=== PATIENT | female | born 1990 | race African-American/Black ===

== ENCOUNTER 2016-12-25 14:37 | Emergency (ER) | payer OTHER ==
[~2016-12-25] VITALS: Ht 160 cm; Wt 122.5 kg
[2016-12-25 14:54] VITALS: Ht 160 cm; Wt 122.5 kg
[2016-12-25 17:14] LABS: ADD UMIC YES; URINE BILIRUBIN (Dip) NEGATIVE (NEGATIVE); URINE BLOOD (Dip) 3+ (NEGATIVE); URINE COLOR LT. YELLOW (YELLOW); URINE GLUCOSE (Dip) NEGATIVE (NEGATIVE); URINE KETONES (Dip) NEGATIVE (NEGATIVE); URINE LEUKOCYTE ESTERASE (Dip) NEGATIVE (NEGATIVE); URINE NITRITE (Dip) NEGATIVE (NEGATIVE); URINE TOTAL PROTEIN (Dip) NEGATIVE (NEGATIVE); URINE UROBILINOGEN (Dip) 0.2 E.U./dL (0.1-1.0)
[2016-12-25 17:15] LABS: ADD SCAN DIFF NO
[2016-12-25 17:35] LABS: SQUAMOUS EPITHELIAL CELL,UR FEW
[2016-12-25 17:49] LABS: BASOPHILS % 0.5 % (0.0-2.0); EOSINOPHILS # 0.1 10^3/ul (0.0-0.5); EOSINOPHILS % 1.6 % (0.0-7.0); HEMOGLOBIN 12.3 g/dl (12.0-16.0); LYMPHOCYTES % 52.2 % (15.0-51.0); MEAN CORPUSCULAR HEMOGLOBIN 29.9 pg (29.0-33.0); MEAN CORPUSCULAR HGB CONC 33.2 g/dl (32.0-37.0); MEAN CORPUSCULAR VOLUME 89.8 fl (82.0-101.0); MEAN PLATELET VOLUME 9.1 fl (7.4-10.4); MONOCYTE # 0.5 10^3/ul (0.3-0.9); MONOCYTES % 7.9 % (0.0-11.0); NEUTROPHIL # 2.2 10^3/ul (1.6-7.5); NEUTROPHILS % 37.6 % (39.0-77.0); PLATELET COUNT 397 10^3/UL (140-415); RED BLOOD COUNT 4.12 10^6/ul (4.20-5.40); RED CELL DISTRIBUTION WIDTH 13.6 % (11.5-14.5); WHITE BLOOD COUNT 5.7 10^3/ul (4.8-10.8)
--- NOTE | 2016-12-25 18:11 | RADRPT ---
PROCEDURE: Obstetrical ultrasound with endovaginal images. CLINICAL INDICATION: Vaginal bleeding TECHNIQUE: Multiple sonographic images of the pelvis were obtained utilizing a transabdominal and endovaginal technique. The images were reviewed on a PACS workstation. COMPARISON: None. LMP: 12/21/2016 FINDINGS: The uterus measures 10.0 x 4.8 x 5.1 cm. The endometrial echo complex measures 16 mm in thickness. There is no evidence of an intrauterine . There is no evidence of focally increased heter ogeneity or vascularity in the endometrium to suggest retained products of conception. The right ovary is not visualized. The left ovary measures 2.8 x 1.5 x 1.8 cm. There is normal vascu lar flow in both ovaries. There is a 1.2 cm thick-walled complex cystic lesion with low level internal echoes and mild periphe ral vascular flow in the left ovary which may be a hemorrhagic or corpus luteal cyst. No significant pelvic free fluid is identified. IMPRESSION: There is thickening of the endometrium to 16 mm without evidence of an intrauterine or ret ained products of conception, as above. Correlation with Beta HCG levels is recommended. 1.2 cm complex cystic lesion in the left ovary may be a hemorrhagic or corpus luteal cyst. Nonvisualization of the right ovary. RPTAT: EE Physician Tory Date Time Electronically viewed and signed by Physician Tory on 12/25/2016 18:11 /
--- NOTE | 2016-12-25 18:21 | ERD ---
ER Documentation Chief Complaint Date/Time DATE: 12/25/16 TIME: 18:17 Chief Complaint VAG BLEED SINCE LAST NIGHT , LMP 11/26/16 HPI This is a 26-year-old female who presents to the emergency department today for vaginal bleeding. Patient states that 4 days ago she was seen at outside hospital in [place] as she had a syncopal episode at work and was taken there to the hospital and was told that she was . Patient states that she has had spotting since then that was worse last night. States she has some nausea but no vomiting. States she took a home test today that was negative for denies any fevers or chills. ROS All systems reviewed and are negative except as per history of present illness. Medications Home Meds Active Scripts Acetaminophen* (Tylophen*) 500 Mg Capsule, 1 CAP PO Q6H Y for PAIN AND OR ELEVATED TEMP, #30 CAP Prov:OLGA TARANGO PA-C 12/25/16 Allergies Allergies: Coded Allergies: No Known Allergy (Unverified , 12/25/16) PMhx/Soc Medical and Surgical Hx: pt denies Medical Hx, pt denies Surgical Hx Hx Alcohol Use: No Hx Substance Use: No Hx Tobacco Use: No Smoking Status: Never smoker Physical Exam Vitals Vital Signs Date Time Temp Pulse Resp B/P Pulse Ox O2 Delivery O2 Flow Rate FiO2 12/25/16 14:54 97.6 82 20 132/81 100 Physical Exam Const: Obese, no acute distress Head: Atraumatic Eyes: Normal Conjunctiva ENT: Normal External Ears, Nose and Mouth. Neck: Full range of motion..~ No meningismus. Resp: Clear to auscultation bilaterally Cardio: Regular rate and rhythm, no murmurs Abd: Soft, non tender, non distended. Normal bowel sounds. No right lower quadrant pain. No left lower quadrant pain. Skin: No petechiae or rashes Neur: Awake and alert Psych: Normal Mood and Affect Result Diagram: 12/25/16 1700 Results 24 hrs Laboratory Tests Test 12/25/16 16:55 12/25/16 17:00 Urine Color LT. YELLOW Urine Clarity CLEAR Urine pH 6.0 Urine Specific Frederic <=1.005 Urine Ketones NEGATIVE Urine Nitrite NEGATIVE Urine Bilirubin NEGATIVE Urine Urobilinogen 0.2 E.U./dL Urine Leukocyte Esterase NEGATIVE Urine Microscopic RBC 5-10/HPF Urine Microscopic WBC 0-2/HPF Urine Squamous Epithelial Cells FEW Urine Hemoglobin 3+ Urine Glucose NEGATIVE% Urine Total Protein NEGATIVE White Blood Count 5.710^3/ul Red Blood Count 4.1210^6/ul Hemoglobin 12.3g/dl Hematocrit 37.0% Mean Corpuscular Volume 89.8fl Mean Corpuscular Hemoglobin 29.9pg Mean Corpuscular Hemoglobin Concent 33.2g/dl Red Cell Distribution Width 13.6% Platelet Count 28613^3/UL Mean Platelet Volume 9.1fl Neutrophils % 37.6% Lymphocytes % 52.2% Monocytes % 7.9% Eosinophils % 1.6% Basophils % 0.5% Nucleated Red Blood Cells % 0.0/100WBC Neutrophils # 2.210^3/ul Lymphocytes # 3.010^3/ul Monocytes # 0.510^3/ul Eosinophils # 0.110^3/ul Basophils # 0.010^3/ul Nucleated Red Blood Cells # 0.010^3/ul Beta HCG, Quantitative < 2.4mIU/ml DIAGNOSTIC IMAGING REPORT Patient: BARBARA WILSON : 1990 Age: 26 Sex: F MR #: [id number] DOS: 12/25/16 0000 Ordering MD: OLGA TARANGO PA-C Location: E Room/Bed: PROCEDURE: Obstetrical ultrasound with endovaginal images. CLINICAL INDICATION: Vaginal bleeding TECHNIQUE: Multiple sonographic images of the pelvis were obtained utilizing a transabdominal and endovaginal technique. The images were reviewed on a PACS workstation. COMPARISON: None. LMP: 12/21/2016 FINDINGS: The uterus measures 10.0 x 4.8 x 5.1 cm. The endometrial echo complex measures 16 mm in thickness. There is no evidence of an intrauterine . There is no evidence of focally increased heterogeneity or vascularity in the endometrium to suggest retained products of conception. The right ovary is not visualized. The left ovary measures 2.8 x 1.5 x 1.8 cm. There is normal vascular flow in both ovaries. There is a 1.2 cm thick-walled complex cystic lesion with low level internal echoes and mild peripheral vascular flow in the left ovary which may be a hemorrhagic or corpus luteal cyst. No significant pelvic free fluid is identified. IMPRESSION: There is thickening of the endometrium to 16 mm without evidence of an intrauterine or retained products of conception, as above. Correlation with Beta HCG levels is recommended. 1.2 cm complex cystic lesion in the left ovary may be a hemorrhagic or corpus luteal cyst. Nonvisualization of the right ovary. RPTAT: EE Shane Garner Physician Date Time Electronically viewed and signed by Shane Garner Physician on 12/25/2016 18:11 RA/ CC: OLGA TARANGO PA-C Procedures/[facility] This is a 26-year-old female who presents to the emergency department today for vaginal bleeding. Patient indicated she had been told last week at an outside hospital that she was . Patient states that she has had continued bleeding but took a home test today that was negative. I did do a urine test here in the emergency department that was negative however after speaking to Dr. Arroyo given patient's complaints of continued vaginal bleeding he recommended a full OB workup as patient has not been seen here in this emergency department for this and I felt that an ultrasound was beneficial to rule out retained products of conception at this time. Laboratory work shows no elevated white blood cell count. She is not anemic. Platelets are within normal limits. UA is negative for infection Rh status O+ Beta quant hCG less than 2.4 Ultrasound shows there is thickening of the endometrium to 60 mm without evidence of intrauterine or retained products of conception. There is no significant pelvic free fluid identified. There is normal vascular flow to both ovaries. There is a 1.2 cm complex cystic lesion in the left ovary that may be hemorrhagic or corpus luteal cyst. Patient really has no abdominal pain on physical exam of low suspicion for ectopic , tubal ovarian abscess or ovarian torsion. given that patient had previously been told that she was and has had continued vaginal bleeding this is likely a failed . Patient symptoms at this time is consistent with vaginal bleeding in early versus dysfunctional uterine bleeding versus patient's normal menstrual cycle. I have explained this to the patient. I have explained that she is to follow-up with her primary care physician of commercial [employer] professional for further evaluation and management. Patient will begin a prescription for Tylenol. At this time the patient is stable for discharge and outpatient management. Patient should follow up with their PCP in the next 1-2 days. They may return to the emergency department sooner for any persistent or worsening of symptoms. Patient understood and agreed with the plan. Discussed the patient with Dr. Arroyo and he is in agreement with the plan. Departure Diagnosis: Primary Impression: Vaginal bleeding in patient at less than 20 weeks gestation Condition: OLGA Hale PA-C Dec 25, 2016 18:21
[2016-12-25] MEDS ORDERED: ACET500C5 PO (18:25)
[2016-12-25 18:33] VITALS: BP 107/62; PULSE 90; RESP 18; TEMP 98.3
== END 2016-12-25 18:33 | disposition home or self-care (01) ==
LOC: FTE 14:37
DX: N93.9 Abnormal uterine and vaginal bleeding, unspecified (principal)
CPT/HCPCS: 36415; 76830; 76856; 81001; 84702; 85025; 86900; 86901; Z7502; 81003

== ENCOUNTER 2017-01-02 07:55 | Emergency (ER) | payer OTHER ==
[~2017-01-02] VITALS: Ht 160 cm; Wt 124.0 kg
[~2017-01-02 07:55] MED LIST: ACET500C5 PO
[2017-01-02 08:04] VITALS: Ht 160 cm; Wt 124.0 kg
--- NOTE | 2017-01-02 09:12 | RADRPT ---
PROCEDURE: XR thoracic Spine. CLINICAL INDICATION: Back pain TECHNIQUE: AP, lateral and swimmer's views of the thoracic spine were obtained. COMPARISON: No prior studies are available for comparison. FINDINGS: The study is limited due to motion artifact on the lateral view. There is normal vertebral mineralization and alignment. No acute fracture or subluxation is seen. The disc spaces are normal in appearance. The posterior elements are unremarkable. The soft tissues appear normal. There is a partially visualized IVC filter. RPTAT: AA IMPRESSION: No gross fracture. Limited study due to motion artifact. .Tim Gutiérrez MD, Date Time Electronically viewed and signed by .Tim Gutiérrez MD, on 01/02/2017 09:12 .S/
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
[2017-01-02] MEDS ORDERED: IBUP-1542 PO (09:57)
[2017-01-02] MEDS ORDERED: ORPH100T PO (09:58)
[2017-01-02] MEDS ORDERED: HYDR-906 PO (09:58)
[2017-01-02 10:07] VITALS: BP 132/77; PULSE 78; RESP 18; TEMP 98.2
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
== END 2017-01-02 10:09 | disposition home or self-care (01) ==
LOC: FTE 07:55
DX: S09.90XA Unspecified injury of head, initial encounter (principal); R51 Headache; V43.62XA Car passenger injured in collision with other type car in traffic accident, initial encounter
CPT/HCPCS: 70450; 72072; 72125; Z7502